=== PATIENT | female | born 1975 | race Caucasian/White ===

== ENCOUNTER 2020-03-18 16:42 | Emergency (ER) | payer MEDICARE, MEDICAID, SELFPAY ==
[2020-03-18 17:10] VITALS: BP 149/79; PULSE 92; RESP 20; TEMP 36.7; O2SAT 98; BMI 45.8
--- NOTE | 2020-03-18 17:48 | HMH.EDUTC ---
[facility] [place] Disposition Clinical Impression: Exposure to COVID-19 virus, Viral syndrome Disposition: Home, Self-Care Condition on Discharge: Good Instructions: Preventing the Spread of Coronavirus Discharge Instructions Additional Instructions: Drink plenty of fluids. Take tylenol for pain or fever. Return if you begin to have difficulty breathing. Follow up with your regular doctor. GO TO THE ER FOR ANY WORSENING SYMPTOMS Referrals: Oswaldo Matute MD [Primary Care Provider] - Time of Disposition: 17:54 Medical Decision Making - Medical Records Medical records reviewed: No: I reviewed the patient's medical records. - Osmel Inquiry Pt receiving controlled substance: No Vital Signs: 03/18/20 17:10 03/18/20 17:53 Temperature 98.0 F 98.0 F Temperature Source Oral Pulse Rate 92 H Pulse Rate [Left Brachial] 92 H Respiratory Rate 20 20 Blood Pressure 149/79 H Blood Pressure [Left Arm] 149/79 H Blood Pressure Mean [Left Arm] 102 Blood Pressure Source [Left Arm] Automatic Cuff Blood Pressure Position [Left Arm] Sitting 02 Sat by Pulse Oximetry 98 Oxygen Delivery Method Room Air Orders (Tests/Meds): ORDERS Category Date Time Status Covid-19 Nasal PCR ([facility]) Routine Lab 03/18/20 17:00 Received [facility] [place] HPI - General Stated complaint: No taste / smell COVID;exposed Time Seen by Provider: 03/18/20 17:48 Mode of Arrival: Ambulatory Source of Information: Patient Limitations: No Limitations Description of Symptoms (Recalled from Triage Doc. by RN): PATIENT REQUESTING COVID TEST D/T EXPOSURE; C/O LOSS OF TASTE AND SMELL HEENT Symptoms (Recalled from RN notes): Yes Resp Symptoms (Recalled from RN notes): No Skin Symptoms (Recalled from RN notes): No MS Symptoms (Recalled from RN notes): No Functional Status (Recalled from RN notes): WNL - History of Present Illness Provider Complaint: She has been exposed to covid by multiple members of her family having it. She states that since this morning she has not been able to taste or smell anything. - Related Data Previous Rx's Medication Instructions Recorded Bacitracin [Bacitracin Oint 0.9GM 1 each TP TID #20 packet 11/12/17 UDP] cephALEXin [Keflex 500mg Cap] 500 mg PO Q6H #28 cap 11/12/17 Allergies Allergy/AdvReac Type Severity Reaction Status Date / Time duloxetine [From CYMBALTA] Allergy Unknown Verified 11/12/17 13:09 PLASTIC TAPE Allergy Unknown Uncoded 03/04/17 14:31 - Worker's Comp Is this a Worker's Comp case?: No [facility] History - Hepatitis A Screen Drug use history?: No High risk sexual behaviors?: No History of sexually transmitted infection?: No Currently employed?: No Childcare worker?: No Do you have indoor plumbing?: Yes Do you have electricity?: Yes Attestation statement:: This patient has been screened for Hepatitis A risk factors. I have reviewed the patient's past medical history: Yes Medical History: Denies:: Cancer, Diabetes Mellitus Type 1, Diabetes Mellitus Type 2, MRSA Amputation: No - Social History Smoking Status: Current every day smoker Tobacco Type: cigarettes Alcohol Intake: never Occupational Status: other ROS Obtained: Yes All systems reviewed & no additional complaints - Constitutional Constitutional: Reports system reviewed and no additional complaints, except as docu - Eyes Eyes: Reports system reviewed and no additional complaints, except as docu - ENT Ears, Nose, Mouth, and Throat: Reports system reviewed and no additional complaints, except as docu - Cardiovascular Cardiovascular: Reports system reviewed and no additional complaints, except as docu - Respiratory Respiratory: Yes system reviewed and no additional complaints, except as docu - Gastrointestinal Gastrointestingal: Reports: system reviewed and no additional complaints, except as docu Physical Exam - General General appearance: alert, in no apparent distress - Head Head exam: atraumatic
[2020-03-18 17:53] VITALS: BP 149/79; PULSE 92; RESP 20; TEMP 36.7; O2SAT 98
--- NOTE | 2020-03-18 21:04 | PC.NURSE ---
PATIENT NOTIFIED OF POSITIVE COVID TEST AT THIS TIME
== END 2020-03-18 18:07 | disposition home or self-care (01) ==
PROVIDERS: Emergency Provider Nurse Practitioner Family; PCP Family Medicine
DX: U07.1 COVID-19 (principal)
CPT/HCPCS: G0463; 99202; U0003

== ENCOUNTER 2020-10-05 13:33 | Emergency (ER) | payer MEDICARE, MEDICAID, SELFPAY ==
[2020-10-05 14:04] VITALS: BMI 39.0
--- NOTE | 2020-10-05 14:05 | XR_ITS ---
PROCEDURE: XR FOOT LT MIN 3V CLINICAL INDICATION: pain COMPARISON: No exams were available for comparison FINDINGS: No fracture or dislocation. No lytic or blastic change. There is normal mineralization. The joint spaces are well-preserved. No significant degenerative/arthritic changes. No erosive changes evident. Other findings:None. IMPRESSION: No acute findings. Dictated by: Vannessa Whatley 10/05/2020 15:02 Vannessa Whatley in [place] 10/05/2020 15:02
--- NOTE | 2020-10-05 14:05 | XR_ITS ---
PROCEDURE: XR ANKLE LT MIN 3V CLINICAL INDICATION: pain COMPARISON: No exams were available for comparison FINDINGS: No acute fractures or dislocations. Bone density is normal. The ankle mortise is congruent and the lateral clear space is preserved. No focal lytic or sclerotic lesions. No significant degenerative changes. No significant soft tissue abnormality. IMPRESSION: No acute abnormality. Dictated by: Vannessa Whatley 10/05/2020 15:01 Vannessa Whatley in [place] 10/05/2020 15:01
[2020-10-05 14:15] VITALS: BP 145/95; PULSE 115; RESP 12; TEMP 36.8; O2SAT 97; BMI 39.0
--- NOTE | 2020-10-05 14:35 | HMH.EDUTC ---
[facility] [place] Disposition Clinical Impression: Left foot pain, Tendinitis of left foot Disposition: Home, Self-Care Condition on Discharge: Good Additional Instructions: Rest the extremity, Elevate the extremity as tolerated while you are resting. Take the medications as directed. Follow up with Dr. Florian (podiatry). I put in a referral but you need to call her office and schedule an appointment. Follow up with your regular doctor. GO TO THE ER FOR ANY WORSENING SYMPTOMS Prescriptions: cephALEXin [cephALEXin 500mg capsule] 500 mg PO Q6H 10 Days #40 cap Transmission Status: Received by [facility] methylPREDNISolone [Medrol] 4 mg PO DIRECTED 6 Days #21 [email or web address] Transmission Status: Received by [facility] Referrals: Oswaldo Matute MD [Primary Care Provider] - Time of Disposition: 15:20 Medical Decision Making - Medical Records Medical records reviewed: No: I reviewed the patient's medical records. - Osmel Inquiry Pt receiving controlled substance: No Vital Signs: 10/05/20 14:15 10/05/20 15:07 Temperature 98.2 F 98 F Temperature Source Oral Pulse Rate 104 H Pulse Rate [Left] 115 H Respiratory Rate 12 15 Blood Pressure 145/95 H Blood Pressure [Right Arm] 145/95 H Blood Pressure Mean [Right Arm] 111 02 Sat by Pulse Oximetry 97 - Radiology Data #1 Image(s): Foot/Toes Image Reviewed: Yes I reviewed the patient's radiology image, Yes I have reviewed radiologist's interpretation Preliminary Findings: Normal/NAD, No Fracture Seen PROCEDURE: XR FOOT LT MIN 3V CLINICAL INDICATION: pain COMPARISON: No exams were available for comparison FINDINGS: No fracture or dislocation. No lytic or blastic change. There is normal mineralization. The joint spaces are well-preserved. No significant degenerative/arthritic changes. No erosive changes evident. Other findings:None. IMPRESSION: No acute findings. Dictated by: Vannessa Whatley 10/05/2020 15:02 Vannessa Whatley in [place] 10/05/2020 15:02 [facility] HPI - General Stated complaint: Lt foot pain Time Seen by Provider: 10/05/20 15:17 Mode of Arrival: Ambulatory Source of Information: Patient Limitations: No Limitations Description of Symptoms (Recalled from Triage Doc. by RN): pt woke up friday with her left foot hurting. unsure about an injury. now she is c/o pain in the outer part of her left foot up to her ankle. the foot is visibly swollen. pt states she can only bare weight on the inside of the foot. HEENT Symptoms (Recalled from RN notes): No Resp Symptoms (Recalled from RN notes): No Skin Symptoms (Recalled from RN notes): No MS Symptoms (Recalled from RN notes): Yes (L outer foot pain) Functional Status (Recalled from RN notes): na - History of Present Illness Provider Complaint: She has had left foot pain for the past 3 days. She denies any known injury. She denies any known history of gout or diabetes. - Related Data Previous Rx's Medication Instructions Recorded Bacitracin [Bacitracin Oint 0.9GM 1 each TP TID #20 packet 11/12/17 UDP] cephALEXin [Keflex 500mg Cap] 500 mg PO Q6H #28 cap 11/12/17 cephALEXin [cephALEXin 500mg 500 mg PO Q6H 10 Days #40 cap 10/05/20 capsule] methylPREDNISolone [Medrol] 4 mg PO DIRECTED 6 Days #21 10/05/20 tab.[email or web address] Allergies Allergy/AdvReac Type Severity Reaction Status Date / Time duloxetine [From CYMBALTA] Allergy Unknown Verified 10/05/20 14:29 PLASTIC TAPE Allergy Unknown Uncoded 03/04/17 14:31 - Worker's Comp Is this a Worker's Comp case?: No [facility] History - Hepatitis A Screen Drug use history?: No High risk sexual behaviors?: No History of sexually transmitted infection?: No Currently employed?: No Childcare worker?: No Do you have indoor plumbing?: Yes Do you have electricity?: Yes Attestation statement:: This patient has been screened for Hepatitis A risk factors. I have reviewed the patient's past m
[2020-10-05 15:07] VITALS: BP 145/95; PULSE 104; RESP 15; TEMP 36.6
== END 2020-10-05 15:27 | disposition home or self-care (01) ==
PROVIDERS: Emergency Provider Nurse Practitioner Family; PCP Family Medicine
DX: M77.52 Other enthesopathy of left foot and ankle (principal); F17.210 Nicotine dependence, cigarettes, uncomplicated
CPT/HCPCS: G0463; 73610; 73630; 99202

== ENCOUNTER → 2021-03-13 07:55 | Outpatient (CLI) | payer MEDICARE, MEDICAID, SELFPAY ==
--- NOTE | 2021-03-13 08:00 | US_ITS ---
PROCEDURE: US LIVER CLINICAL INDICATION: SHEPHERD COMPARISON: US RUQ US RUQ-(ABD LTD)1ORGAN/QUAD/FU from 03/05/2016 FINDINGS: PANCREAS: Not well delineated LIVER: No focal liver lesions demonstrated. Homogeneous echogenicity. No intrahepatic biliary ductal dilatation evident. There is appropriate direction of blood flow within a non dilated portal vein RIGHT KIDNEY: Unremarkable. Normal size and echogenicity. No hydronephrosis GALLBLADDER: No gallstones, gallbladder wall thickening, pericholecystic fluid, or biliary dilatation. IMPRESSION: Unremarkable right upper quadrant ultrasound as detailed above disc except for poor visualization of the pancreas Dictated by: Neftali Muse MD 03/13/2021 15:59 Neftali Muse MD in [place] 03/13/2021 15:59
== END ==
PROVIDERS: PCP Family Medicine; Visit Provider Nurse Practitioner Family
DX: K75.81 Nonalcoholic steatohepatitis (NASH) (principal)
CPT/HCPCS: 76705

== ENCOUNTER → 2021-06-26 10:51 | Outpatient (CLI) | payer MEDICARE, MEDICAID, SELFPAY ==
--- NOTE | 2021-06-26 10:59 | MR_ITS ---
FINAL REPORT CLINICAL HISTORY: ANESTHESIA OF SKIN, LEFT FOOT PAIN. MID DORSAL FOOT PAIN, ACHING, NO INJURY FINDINGS: Multiplanar MR imaging of the left foot was performed without contrast. The bony structures are intact without evidence of fracture, bone bruise or marrow edema. The Achilles tendon appears intact. There is a small joint effusion. There is mild subcutaneous edema overlying the medial malleolus. The musculature is intact. The plantar aponeurosis is intact. No soft tissue mass or cyst is identified. IMPRESSION: Subcutaneous edema overlying the medial malleolus Reviewed, Interpreted and Dictated by El Mccauley MD Transcribed by Peg Faulkner Authenticated by El Mccauley MD on 06/26/2021 02:04:22 PM [facility]
== END ==
PROVIDERS: PCP Family Medicine; Visit Provider Nurse Practitioner Family
DX: M79.672 Pain in left foot (principal); R20.0 Anesthesia of skin; R20.2 Paresthesia of skin
CPT/HCPCS: 73718

== ENCOUNTER → 2021-06-29 12:49 | Outpatient (CLI) | payer MEDICARE, MEDICAID, SELFPAY ==
--- NOTE | 2021-06-29 12:52 | MR_ITS ---
FINAL REPORT CLINICAL HISTORY: LUMBAGO W/ SCIATICA, RT SIDE FINDINGS: Multiplanar MR imaging of the lumbar spine was performed without contrast. On the sagittal T2-weighted images, the lumbar discs demonstrate normal signal and height. The vertebrae are of normal height. The vertebral alignment is normal. L1-2: There is no significant canal stenosis or neural foraminal narrowing. L2-3: There is no significant canal stenosis or neural foraminal narrowing. L3-4: There is no significant canal stenosis or neural foraminal narrowing. L4-5: There is a mild diffuse disc bulge with mild bilateral facet hypertrophy. There is mild bilateral neural foraminal narrowing. L5-S1: There is no significant canal stenosis or neural foraminal narrowing. IMPRESSION: Mild diffuse disc bulge and mild bilateral neural foraminal narrowing at L4-L5. Reviewed, Interpreted and Dictated by El Mccauley MD Transcribed by Hernán Godwin Authenticated by El Mccauley MD on 06/29/2021 03:17:25 PM [facility]
--- NOTE | 2021-06-29 12:52 | MR_ITS ---
FINAL REPORT CLINICAL HISTORY: CERVICALGIA. PAIN AND NUMBNES ALL OVER. NKI. HX OF BULGING DISC. FINDINGS: Multi planar MR imaging was obtained of the cervical spine. There is moderate decreased signal in the C5-C6 disc. There is loss of cervical lordosis. The vertebrae are of normal height. There is no malalignment. The cervical cord demonstrates normal signal and configuration. C2-C3: There is no evidence of significant disc bulge or protrusion. There is no significant facet hypertrophy. C3-C4: There is no evidence of significant disc bulge or protrusion. There is no significant facet hypertrophy. C4-C5: There is no evidence of significant disc bulge or protrusion. There is no significant facet hypertrophy. C5-C6: There is a left paracentral disc protrusion with moderate compromise on the left lateral recess on the left side of the spinal canal. There is moderate left neural foraminal narrowing. C6-C7: There is no evidence of significant disc bulge or protrusion. There is no significant facet hypertrophy. C7-T1: There is no evidence of significant disc bulge or protrusion. There is no significant facet hypertrophy. IMPRESSION: Left paracentral disc protrusion at C5-C6 with compromise on the left side of the spinal canal and the left neural foramen. Reviewed, Interpreted and Dictated by El Mccauley MD Transcribed by Hernán Godwin Authenticated by El Mccauley MD on 06/29/2021 03:17:27 PM [facility]
== END ==
PROVIDERS: PCP Nurse Practitioner Family; Visit Provider Nurse Practitioner Family
DX: M54.2 Cervicalgia (principal); M54.41 Lumbago with sciatica, right side; R20.0 Anesthesia of skin; R20.2 Paresthesia of skin
CPT/HCPCS: 72141; 72148; 76376

== ENCOUNTER 2022-04-26 11:42 | Emergency (ER) | payer MEDICARE, MEDICAID, SELFPAY ==
[2022-04-26 12:40] VITALS: BP 152/92; PULSE 95; RESP 20; TEMP 36.8; O2SAT 98; BMI 44.9
[2022-04-26 13:06] LABS: UTC Strep Screen (Rapid) Negative (Negative)
--- NOTE | 2022-04-26 13:10 | EXP.UTC ---
Discharge Plan Disposition Patient Disposition: Home, Self-Care Condition: Good Prescriptions Prescriptions: New prednisone [prednisone] 20 mg tablet 20 mg PO BID 5 Days Qty: 10 0RF amoxicillin-pot clavulanate 875-125 mg Tablet 1 tab PO Q12H Qty: 20 0RF Referrals Follow up/Referrals: Debra Zeng APRN [Primary Care Provider] - See instructions Clinical Impressions Clinical Impression: Bilateral otitis media Instructions Patient Instructions: DI for Otitis Media (Middle Ear Infection)-Child Discharge ED Provider: Elke Wisdom [facility] [place] HPI General Stated complaint: sore throat Mode of Arrival: Ambulatory Source of Information: Patient Limitations: No Limitations Time Seen by Provider: 04/26/22 13:11 Description of Symptoms (Recalled from Triage Doc. by RN): sore throat HEENT Symptoms (Recalled from RN notes): Yes Resp Symptoms (Recalled from RN notes): No Skin Symptoms (Recalled from RN notes): No MS Symptoms (Recalled from RN notes): No Functional Status (Recalled from RN notes): n/a History of Present Illness Provider Complaint: Patient has had sore throat since this am. Right ear feels like it is running. No fever. No vomiting or diarrhea. Onset (ago): day(s) (1) Relieving factors: none Exacerbating factors: none Associated symptoms: denies other symptoms Treatments prior to arrival: none Related Data Previous Rx's Medication Instructions Recorded amoxicillin 875 mg-potassium 1 tab PO Q12H #20 tabs 04/26/22 clavulanate 125 mg tablet prednisone 20 mg tablet 20 mg PO BID 5 days #10 tabs 04/26/22 Allergies Allergy/AdvReac Type Severity Reaction Status Date / Time duloxetine [From CYMBALTA] Allergy Unknown Verified 04/26/22 12:56 PLASTIC TAPE Allergy Unknown Uncoded 03/04/17 14:31 Worker's Comp Is this a Worker's Comp case?: No [facility] Disclaimer: The information contained in this section may have been updated after the patient was seen, as this information can be updated by other users. Social History Smoking Status: Current every day smoker tobacco type: cigarettes alcohol intake: never current occupational status: other Travel in the last 8 weeks: None ROS Obtained: Yes All systems reviewed & no additional complaints except as documented ENT Ears, Nose, Mouth, and Throat: Reports otalgia and Reports sore throat Physical Exam General General appearance: alert and in no apparent distress Head Head exam: atraumatic, normocephalic and normal inspection Eye Eye exam: Present normal appearance, PERRL and EOMI ENT ENT exam: Present normal exam, mucous membranes moist, TM's normal bilaterally and normal external ear exam Expanded ENT Exam TM/Canal exam: Bilateral TM: erythema and bulging Throat exam: Present tonsillar erythema and tonsillar exudate Neck Neck exam: Present normal inspection, full ROM and trachea midline; Absent meningismus or lymphadenopathy Chest Chest inspection: Present normal inspection and symmetric chest wall rise; Absent tenderness Respiratory Respiratory exam: Present normal lung sounds bilaterally; Absent respiratory distress Cardiovascular Cardiovascular exam: Present regular rate and normal rhythm; Absent JVD Abdominal Exam Abdominal exam: Present soft and normal bowel sounds; Absent distention, tenderness or guarding Extremities Exam Extremities exam: Present normal inspection, full ROM and normal capillary refill; Absent calf tenderness Back Exam Back exam: Present normal inspection; Absent tenderness Neurological Exam Neurological exam: Present alert and oriented X3 Psychiatric Psychiatric exam: Present normal affect and normal mood Skin Skin exam: Present warm, dry, intact and normal color Lymphatic Lymphatic Findings: no adenopathy Medical Decision Making Osmel Inquiry Pt receiving controlled substance: No Vital Signs: 04/26/22 12:40 Temperature 98.3 F [place]
[2022-04-26 13:20] VITALS: BP 152/92; PULSE 95; RESP 20; TEMP 36.8; O2SAT 98
== END 2022-04-26 13:19 | disposition home or self-care (01) ==
PROVIDERS: Emergency Provider Physician Assistant; PCP Nurse Practitioner Family
DX: H66.90 Otitis media, unspecified, unspecified ear (principal)
CPT/HCPCS: 87880; 99212; 99213; G0463

== ENCOUNTER → 2022-09-12 07:41 | Outpatient (CLI) | payer MEDICARE, MEDICAID, SELFPAY ==
--- NOTE | 2022-09-12 07:44 | CT_ITS ---
FINAL REPORT CLINICAL HISTORY: FEVER,H/O RENAL CALCULI,FLANK PAIN FINDINGS: Axial CT images of the abdomen and pelvis were obtained without intravenous contrast. Coronal and sagittal reformatted images were also obtained. This study was performed with techniques to keep radiation doses as low as reasonably achievable (ALARA). Individualized dose reduction techniques using automated exposure control or adjustment of mA and/or kV according to the patient''s size were employed. Abdomen: The lung bases are clear. There is no evidence of renal stone or hydronephrosis. The liver, spleen and pancreas have an unremarkable, unenhanced appearance. No mass or adenopathy is seen. No inflammatory process is identified. Pelvis: Images of the pelvis reveal no evidence of ureteral dilation or ureteral stone. The appendix measures up to 6 mm in diameter, but without surrounding inflammation to suggest appendicitis. There are several fluid-filled small bowel loops in a nonspecific pattern. Scattered diverticula are seen in the sigmoid colon without evidence of diverticulitis. Postoperative changes are seen from hysterectomy. IMPRESSION: No renal or ureteral stone, or hydronephrosis. Multiple fluid-filled small bowel loops in a nonspecific pattern, but could represent an enteritis. Authenticated and ERN
== END ==
PROVIDERS: PCP Nurse Practitioner Family; Visit Provider Nurse Practitioner Family
DX: R10.9 Unspecified abdominal pain (principal); R50.9 Fever, unspecified; Z87.442 Personal history of urinary calculi
CPT/HCPCS: 74176

== ENCOUNTER 2023-03-15 20:28 | Emergency (ER) | payer MEDICARE, MEDICAID, SELFPAY ==
[2023-03-15 20:31] VITALS: BP 144/82; PULSE 100; RESP 16; TEMP 36.8; O2SAT 99; BMI 41.0
[2023-03-15 21:07] VITALS: BP 118/84; PULSE 96; RESP 20; O2SAT 100
[2023-03-15 21:07] LABS: Microscopic, Urine URINE MICROSCOPIC (MICROSCOPIC)
--- NOTE | 2023-03-15 21:07 | HMH.EDGENADL ---
Discharge Plan Disposition Patient Disposition: Home, Self-Care Prescriptions Prescriptions: New fluconazole 150 mg tablet 150 mg PO ONCE 1 Days Qty: 2 0RF Rx Instructions: repeat in one week if not improving nitrofurantoin monohyd/m-cryst 100 mg capsule 100 mg PO BID 5 Days Qty: 10 0RF Rx Instructions: must administer with a meal/food No Action pravastatin 40 mg tablet 40 mg PO DAILY clonazepam 1 mg tablet 1 mg PO DAILY baclofen 10 mg tablet 10 mg PO DAILY pantoprazole 40 mg tablet,delayed release (DR/EC) 40 mg PO DAILY dextroamphetamine-amphetamine 20 mg tablet 20 mg PO DAILY hydroxyzine HCl 100 mg Tablet 100 mg PO NEEDED PRN (Reason: migraines) topiramate 50 mg tablet 100 mg PO DAILY pregabalin 200 mg capsule 200 mg PO DAILY lamotrigine 200 mg tablet extended release 24hr 200 mg PO DAILY lurasidone 20 mg tablet 100 mg PO DAILY Ubrelvy 100 mg tablet 100 mg PO NEEDED PRN (Reason: migraines) Referrals Follow up/Referrals: Angelique Arriaga DO [Staff Physician] - See instructions Juan Antonio Molina MD [Primary Care Provider] - See instructions Activity Restrictions/Add. Instructions Additional Instructions/Restrictions: Your urinalysis was questionable for possible urinary tract infection but given your symptoms we will treat. Additionally with your abnormal vaginal discharge inflammation and suspicion for possible yeast infection despite equivocal test we will treat as well. Please follow-up with Dr. Arriaga or Dr. Rodriguez and her [facility] office to further discuss your chronic pelvic pain that you have been experiencing. Please take your fluconazole one week after your dose tonight if still symptomatic. Clinical Impressions Clinical Impression: UTI (urinary tract infection), Vaginitis, Chronic female pelvic pain Discharge ED Provider: Bernadette Echols General Adult HPI General Chief complaint: PAIN Stated complaint: Pelvic pain Time Seen by Provider: 03/15/23 20:46 Mode of Arrival: Ambulatory Source of Information: Patient Limitations: No Limitations Description of Symptoms (Recalled from ER Triage Doc. by RN): Pt C/O pelvic pain that started around first of September after uti that has gradullay gotten worse. PT has seen family doc, CT taken showed diverticulosis. Pt not able to see ob till end of may. HX complete hysterectomy 18 yrs ago. Pt reports blood on TP after wiping 3 nights ago. Reports urinary freq X2 days, cloudy urine, foul odor when urinating. Reports vaginal d/c, denies being sexually active. Pt reports muscle spasms in back. Has not taken medications for pain History of Present Illness HPI narrative: Patient is a 47-year-old female presenting today with lower abdominal discomfort. States this began earlier this summer where she was diagnosed with a urinary tract infection but she feels like she never got significantly better since that time. Since that time she has had some lower abdominal discomfort she actually had a CT scan done in outpatient setting which did not show any significant abnormalities she was told to follow-up with her [facility] doctor but she tried to do but they are not able to see her until May. She has had a total hysterectomy including having her uterus as well as her ovaries removed. She does state that she has had some foul-smelling discharge that has been cottage cheese in nature but no one has done a pelvic exam since this has been going on. And over the last 3 days she has had some dysuria as well. On the CT scan she was told that she had diverticulosis at that time but no evidence of diverticulitis. She is not sexually active and has not been in a years. Related Data Home Medications Medication Instructions Recorded Confirmed baclofen 10 mg tablet 10 mg PO DAILY 03/15/23 03/15/23 clonazepam 1 mg tablet 1 mg PO DAILY 03/15/23 03/15/23 dextroamphetamine-amphetamine 20 20 mg PO DAILY 03/15/23 03/15/23 mg tablet hydroxyzine HCl 100 mg tablet 100 mg PO NEEDED PRN migraines 03/15/23 03/15/23 lamotrigine 200 mg tablet,extended 200 mg PO DAILY 03/15/23 03/15/23 release 24 hr lurasidone 20 mg tablet 100 mg PO DAILY 03/15/23 03/15/23 pantoprazole 40 mg tablet,delayed 40 mg PO DAILY 03/15/23 03/15/23 release pravastatin 40 mg tablet 40 mg PO DAILY 03/15/23 03/15/23 pregabalin 200 mg capsule 200 mg PO DAILY 03/15/23 03/15/23 topiramate 50 mg tablet 100 mg PO DAILY 03/15/23 03/15/23 ubrogepant 100 mg tablet (Ubrelvy) 100 mg PO NEEDED PRN migraines 03/15/23 03/15/23 Previous Rx's Medication Instructions Recorded fluconazole 150 mg tablet 150 mg PO ONCE 1 day #2 tabs 03/15/23 nitrofurantoin 100 mg PO BID 5 days #10 caps 03/15/23 monohydrate/macrocrystals 100 mg capsule Allergies Allergy/AdvReac Type Severity Reaction Status Date / Time duloxetine [From CYMBALTA] Allergy Unknown Verified 04/26/22 12:56 PLASTIC TAPE Allergy Unknown Uncoded 03/04/17 14:31 [facility] Disclaimer: The information contained in this section may have been updated after the patient was seen, as this information can be updated by other users. Social History Smoking Status: Never smoker alcohol intake: never current occupational status: other Travel in the last 8 weeks: None ROS Obtained: Yes All systems reviewed & no additional complaints except as documented Physical Exam General General appearance: alert and in no apparent distress Respiratory Respiratory exam: Present normal lung sounds bilaterally; Absent respiratory distress Cardiovascular Cardiovascular exam: Present regular rate; Absent tachycardia Abdominal Exam Abdominal exam: Present soft; Absent distention or tenderness Expanded Exam OB exam: Present other (External vaginal exam is normal speculum exam demonstrated diffuse erythema on the vaginal wall with some thick white discharge) Neurological Exam Neurological exam: Present alert and oriented X3 Medical Decision Making Osmel Inquiry Pt receiving controlled substance: No Vital Signs: 03/15/23 20:31 03/15/23 21:07 Temperature 98.3 F Temperature Source Oral Pulse Rate 96 H Pulse Rate [Right Radial] 100 H Respiratory Rate 16 20 Blood Pressure 118/84 Blood Pressure [Left Arm] 144/82 H Blood Pressure Mean 91 Blood Pressure Mean [Left Arm] 102 Blood Pressure Source [Left Arm] Automatic Cuff Blood Pressure Position [Left Arm] Sitting 02 Sat by Pulse Oximetry 99 100 Oxygen Delivery Method Room Air Room Air Lab Data Lab results reviewed: Yes I reviewed the patient's lab results. Lab Results 03/15/23 20:50: Urine Color Yellow, Urine Appearance Clear, Urine pH 8.0, Ur Specific [place] 1.015, Urine Protein Negative, Urine Glucose (UA) Negative, Urine Ketones Negative, Urine Blood Negative, Urine Nitrate Negative, Urine Bilirubin Negative, Urine Urobilinogen 0.2, Ur Leukocyte Esterase Trace, Urine RBC None, Urine WBC Occasional, Ur Squamous Epith Cells Occasional, Amorphous Sediment 2+, Urine Bacteria Trace Orders (Tests/Meds): ED MEDICATIONS Generic Name Dose Route Start Last Admin Trade Name Marina PRN Reason Stop Dose Admin Fluconazole 200 mg 03/15/23 22:14 Fluconazole 100mg Tablet PO 03/15/23 22:15 ONCE ONE Nitrofurantoin Macrocrystals 100 mg 03/15/23 22:14 Nitrofurantoin 100mg Capsule PO 03/15/23 22:15 ONCE ONE ORDERS Category Date Time Status UA [Urinalysis and Microscopic] Stat Lab 03/15/23 20:50 Completed Medical Decision Narrative: 47-year-old female presenting today with lower abdominal discomfort she has a benign abdominal exam I do not suspect any intra-abdominal pathology at this point. She does have some dysuria and frequency urinalysis has been sent will do a pelvic exam and do a PATRICK wet prep and will reassess. Her description of discomfort that was after being treated with antibiotics that has been persistent as well as with cottage cheese type discharge and lower abdominal discomfort suggest that she may have had a untreated yeast infection since that time but we will see. Reassessment 1017 urinalysis shows trace leuks and positive bacteria with the symptoms she is experiencing will treat for urinary tract infection first dose of nitrofurantoin given in the emergency department. Secondly her PATRICK and wet prep were unremarkable specifically no evidence of any clue cells or yeast. Therefore there is significant diagnostic uncertainty at this point. She clearly had some vaginitis on my speculum exam and some abnormal discharge which she is described as different and foul-smelling in the past. Historically her symptoms began after antibiotics in the past and I clinically suspect with the presence of cottage cheese appearing discharge and vaginitis that this is yeast despite a negative PATRICK prep. Therefore dose of fluconazole was given in the emergency department has been advised to take an additional dose in 1 week if she is not improving. She was very tearful after having discussions with her she has a benign abdominal exam this is not consistent with a surgical emergency but discussing further with her what her concerns are she is very concerned about cancer. She clearly has vaginitis on my exam and I believe that the majority of her symptoms are associated with this however cannot rule out malignancy at this point. I strongly encouraged that she follow-up with one of her [facility] doctors here at [place] is 3 to 4 months of follow-up with her previously scheduled appointment is unacceptable in my mind. She is aware and agreeable to this plan and will follow-up with Dr. Arriaga as soon as possible and return to the emergency department any worsening symptoms. Significant diagnostic uncertainty remains and she is aware that and working diagnosis is vaginitis and urinary tract infection. Critical Care Critical Care Time Critical Care Time: No
[2023-03-15 21:16] LABS: Appearance,Urine CLEAR (Clear); Bilirubin,Urine Negative (Negative); Blood, Urine Negative (Negative); Color,Urine YELLOW (Yellow); Glucose,Urine (UA) Negative (Negative); Ketones,Urine Negative (Negative); Leukocyte Esterase,Urine TRACE (Negative); Nitrate,Urine Negative (Negative); Protein,Urine Negative (Negative); Specific Gravity, Urine 1.015 (1.005-1.030); Urobilinogen,Urine 0.2 EU/dl (0.2)
[2023-03-15 22:03] LABS: Amorphous Sediment,Urine 2+ /lpf; Bacteria,Urine Trace /lpf; Squamous Epithelial Cell,Urine Occasional #/hpf (0-5); WBC,Urine Occasional #/hpf (0-3)
[2023-03-15] MEDS: FLUCONAZOLE 100MG TABLET 200 MG PO (22:20)
[2023-03-15] MEDS: NITROFURANTOIN 100MG CAPSULE 100 MG PO (22:20)
[2023-03-15 22:26] VITALS: BP 118/84; PULSE 96; RESP 18; TEMP 36.7; O2SAT 100
[2023-03-20 00:09] LABS: Neisseria gonorrhoeae, NAA Negative (Negative)
== END 2023-03-15 22:30 | disposition home or self-care (01) ==
PROVIDERS: Emergency Provider Student in an Organized Health Care Education/Training Program; PCP Family Medicine
DX: R10.2 Pelvic and perineal pain (principal); N39.0 Urinary tract infection, site not specified; N76.0 Acute vaginitis
CPT/HCPCS: 81001; 87210; 87220; 87491; 87591; 99285

== ENCOUNTER 2023-06-24 08:25 | Day surgery (SDC) | payer MEDICARE, MEDICAID, SELFPAY ==
[2023-06-20 10:17] VITALS: BMI 38.5
[2023-06-24 08:42] VITALS: BP 122/75; PULSE 88; RESP 16; TEMP 36.8; O2SAT 100
[2023-06-24] MEDS: LACTATED RINGERS 1000ML 1,000 ML 25 ML IV (08:48)
--- NOTE | 2023-06-24 08:50 | P.PCN_ITS ---
Procedure: Date: 06/24/23 Patient Date of :: 1975 Procedure Performed:: Colonoscopy Indications:: Screening Performing Provider:: Nikolas Agee MD Referring Provider:: . Sedation:: Monitored anesthesia care Procedure:: After informed consent was obtained the patient was taken to the endoscopy suite. Sedation ensued after the patient was transferred to the left lateral decubitus position. Pulse, blood pressure, and oxygen saturation were monitored throughout the procedure. Digital rectal exam revealed no significant abnormality. The colonoscope was placed in position. The entire colon was eval uated. The colonoscope was carefully removed and the patient was transferred to recovery in stable condition. Please see findings and specimens below for detail. Findings:: Bowel preparation moderate Mild scattered sigmoid diverticulosis Significant spasticity/lack of relaxation Specimens:: None Recommendations:: Repeat colonoscopy in 2-3 years secondary to moderate bowel preparation and spasticity/lack of relaxation. Complications:: No immediate Estimated blood obtained (mL): 0 Colonoscopy Component Colonoscopy Component Was a colonoscopy performed during today's procedure?: Yes Recommended follow up colonoscopy of at least 10 years?: No If no, follow up colonoscopy recommended in ___ years?: (See above) Reason for not recommending >/= 10 yr follow-up interval?: (See above)
--- NOTE | 2023-06-24 08:57 | P.PNANES_ITS ---
[facility] Disclaimer: The information contained in this section may have been updated after the patient was seen, as this information can be updated by other users. Medical History History of nephrolithotomy with removal of calculi Migraines, neuralgic Fibromyalgia High cholesterol Anxiety and depression Chronic female pelvic pain Surgical History History of laparoscopy History of hysterectomy Family History Other No significant family history Social History Smoking Status: Never smoker alcohol intake: never substance use type: denies use current occupational status: other Travel in the last 8 weeks: None [facility] Anesthesia Checklist Patient Identification Patient Identification: Arm Band, Family and Verbal (Name & ) Structural Data Admitted From: Home Planned Operative Procedure/s: Colonoscopy Consent for Planned Operative Procedure(s) Verified: Yes Verified Documents: Surgical Consent and History and Physical NPO Status Verified Time NPO: 04:45 Additional verifications Patient : No Cardiovascular Assessment Heart Sounds: S1 & S2 Pulse Rhythm: Irregular Peripheral Edema: No Airway Assessment Mallampati Score:: Class II C-Spine Mobility Assessed: Yes (FROM) TMJ Mobility Assessed: Yes Dentition: Good Dentition (Nothing loose per pt.) Neurological Assessment Level of Consciousness: Awake, Alert, Appropriate and Follows Commands Hx Seizures: No Numbness or tingling in extremities: No Anesthesia Plan Anesthesia Risk discussed: Yes Anesthesia Plan: Verified ASA Class: III Anesthesia Type: MAC
[2023-06-24 09:01] VITALS: O2SAT 100
[2023-06-24 09:52] VITALS: BP 131/80; PULSE 89; RESP 16; TEMP 36.5; O2SAT 97
[2023-06-24 10:02] VITALS: BP 130/76; PULSE 89; RESP 16; O2SAT 99
== END 2023-06-24 10:26 | disposition home or self-care (01) ==
PROVIDERS: PCP Family Medicine; Visit Provider Surgery
PROC: 0DJD8ZZ Inspection of Lower Intestinal Tract, Via Natural or Artificial Opening Endoscopic (ICD-10-PCS; CPT G0121; principal; 2023-06-24 09:30)
DX: Z12.11 Encounter for screening for malignant neoplasm of colon (principal); K57.30 Diverticulosis of large intestine without perforation or abscess without bleeding
CPT/HCPCS: G0121; J2704

== ENCOUNTER 2023-07-16 13:48 | Outpatient (CLI) | payer MEDICARE, MEDICAID, SELFPAY ==
--- NOTE | 2023-07-16 13:51 | US_ITS ---
FINAL REPORT TECHNIQUE: Ultrasound examination of the right supraclavicular area CLINICAL HISTORY: LYMPH NODE ENLARGEMENT COMPARISON: None FINDINGS: ULTRASOUND SOFT TISSUES NECK: The region of interest described by the patient is the right supraclavicular region in the lower neck. A few small nonspecific lymph nodes are identified in the right lower neck. There is a mildly hyperechoic focus in this region that measures 13 mm in size, that likely represents fat. No significant adenopathy is noted in this region. IMPRESSION: No evidence of significant adenopathy is noted in the region of interest. Reviewed, Interpreted and Dictated by Mary Garcia MD Transcribed by Arianne Serrano Authenticated and [facility]
== END 2023-07-16 23:59 | disposition home or self-care (01) ==
LOC: RAD 13:48
PROVIDERS: PCP Nurse Practitioner; Visit Provider Nurse Practitioner
DX: R59.9 Enlarged lymph nodes, unspecified (principal)
CPT/HCPCS: 76536

== ENCOUNTER 2023-07-29 11:18 | Outpatient (CLI) | payer MEDICARE, MEDICAID, SELFPAY | END 2023-07-29 23:59 | disposition home or self-care (01) | PROVIDERS: PCP Family Medicine; Visit Provider Nurse Practitioner | DX: R20.2 Paresthesia of skin (principal); R26.81 Unsteadiness on feet | CPT/HCPCS: 36415 ==

== ENCOUNTER 2023-12-09 10:47 | Outpatient (CLI) | payer MEDICARE, MEDICAID, SELFPAY ==
[2023-12-09 11:28] LABS: Barbiturates Screen,Urine Negative ng/ml (<200)
[2023-12-09 11:29] LABS: Amphetamine/Metha Screen,Urine Positive ng/ml (<1000); Benzodiazepines Screen,Urine Negative ng/ml (<200)
[2023-12-09 11:30] LABS: Cannabinoid Screen,Urine Negative ng/ml (<50); Methadone Screen,Urine Negative ng/ml (<300)
[2023-12-09 11:31] LABS: Cocaine Screen,Urine Negative ng/ml (<300)
[2023-12-09 11:32] LABS: Opiate Screen,Urine Negative ng/ml (<300); Phencyclidine Screen,Urine Negative ng/ml (<25)
== END 2023-12-09 23:59 | disposition home or self-care (01) ==
LOC: LAB 10:49
PROVIDERS: PCP Family Medicine; Visit Provider Psychiatry & Neurology Psychiatry
DX: Z79.899 Other long term (current) drug therapy (principal); F41.1 Generalized anxiety disorder
CPT/HCPCS: 36415; 80307